=== PATIENT | female | born 1950 | race African-American/Black ===

== ENCOUNTER 2021-08-29 19:20 | Inpatient (IN) | payer MEDICARE, OTHER ==
[2021-08-29 20:13] VITALS: BMI 25.8
[2021-08-29] MEDS ORDERED: Bisacodyl 5 MG TAB PO PRN (22:26)
[2021-08-29] MEDS ORDERED: Ondansetron ODT 4 MG TAB PO PRN (22:30)
[2021-08-29] MEDS ORDERED: Acetaminophen 650 MG Suppository PR PRN (22:30)
[2021-08-29] MEDS ORDERED: Mirtazapine 15 MG TAB PER TUBE SCH (23:00)
[2021-08-29] MEDS ORDERED: Carvedilol 3.125 MG TAB PER TUBE SCH (23:00)
[2021-08-29] MEDS ORDERED: Atorvastatin Calcium 40 MG TAB PER TUBE SCH (23:00)
[2021-08-29] MEDS ORDERED: levETIRAcetam 500 mg/5 ml Oral Solution PO SCH (23:00)
[2021-08-29] MEDS ORDERED: Famotidine 20 MG TAB PO SCH (23:00)
[2021-08-30] MEDS: Zinc Sulfate 220 MG CAP PER TUBE SCH (09:30)
[2021-08-30] MEDS: Enoxaparin Sodium 40 MG/0.4 ML SYRINGE SC SCH (09:32)
[2021-08-30] MEDS: Carvedilol 3.125 MG TAB PER TUBE SCH ×2 (09:43→18:08)
[2021-08-30] MEDS: Aspirin Chewable 81 MG TAB PER TUBE SCH (09:43)
[2021-08-30] MEDS: levETIRAcetam 500 mg/5 ml Oral Solution PO SCH ×2 (09:43→23:00)
[2021-08-30] MEDS: Famotidine 20 MG TAB PO SCH ×2 (09:49→23:01)
[2021-08-30] MEDS: Polyethylene Glycol 3350 17 GM Packet PER TUBE SCH (09:51)
[2021-08-30] MEDS: Nystatin 500,000 UNITS/5 ML UDCUP SSW SCH ×2 (18:08→22:59)
[2021-08-30] MEDS: Mirtazapine 15 MG TAB PER TUBE SCH (23:01)
[2021-08-30] MEDS: Atorvastatin Calcium 40 MG TAB PER TUBE SCH (23:01)
[2021-08-31] MEDS: Polyethylene Glycol 3350 17 GM Packet PER TUBE SCH (10:16)
[2021-08-31] MEDS: Famotidine 20 MG TAB PO SCH ×2 (10:17→23:20)
[2021-08-31] MEDS: levETIRAcetam 500 mg/5 ml Oral Solution PO SCH ×2 (10:17→23:19)
[2021-08-31] MEDS: Nystatin 500,000 UNITS/5 ML UDCUP SSW SCH ×4 (10:17→23:19)
[2021-08-31] MEDS: Zinc Sulfate 220 MG CAP PER TUBE SCH (10:18)
[2021-08-31] MEDS: Enoxaparin Sodium 40 MG/0.4 ML SYRINGE SC SCH (10:18)
[2021-08-31] MEDS: Aspirin Chewable 81 MG TAB PER TUBE SCH (10:18)
[2021-08-31] MEDS: Carvedilol 3.125 MG TAB PER TUBE SCH ×2 (10:18→17:57)
[2021-08-31] MEDS: Mirtazapine 15 MG TAB PER TUBE SCH (23:20)
[2021-08-31] MEDS: Atorvastatin Calcium 40 MG TAB PER TUBE SCH (23:20)
[2021-09-01] MEDS: Enoxaparin Sodium 40 MG/0.4 ML SYRINGE SC SCH (09:15)
[2021-09-01] MEDS: Polyethylene Glycol 3350 17 GM Packet PER TUBE SCH (09:15)
[2021-09-01] MEDS: levETIRAcetam 500 mg/5 ml Oral Solution PO SCH ×2 (09:15→21:41)
[2021-09-01] MEDS: Nystatin 500,000 UNITS/5 ML UDCUP SSW SCH ×4 (09:16→21:45)
[2021-09-01] MEDS: Carvedilol 3.125 MG TAB PER TUBE SCH ×2 (09:17→17:06)
[2021-09-01] MEDS: Famotidine 20 MG TAB PO SCH ×2 (09:17→21:42)
[2021-09-01] MEDS: Aspirin Chewable 81 MG TAB PER TUBE SCH (09:18)
[2021-09-01] MEDS: Zinc Sulfate 220 MG CAP PER TUBE SCH (09:18)
[2021-09-01] MEDS: Mirtazapine 15 MG TAB PER TUBE SCH (21:41)
[2021-09-01] MEDS: Atorvastatin Calcium 40 MG TAB PER TUBE SCH (21:42)
[2021-09-02] MEDS: Enoxaparin Sodium 40 MG/0.4 ML SYRINGE SC SCH (10:33)
[2021-09-02] MEDS: Carvedilol 3.125 MG TAB PER TUBE SCH ×2 (10:34→17:30)
[2021-09-02] MEDS: Zinc Sulfate 220 MG CAP PER TUBE SCH (10:34)
[2021-09-02] MEDS: Famotidine 20 MG TAB PO SCH ×2 (10:34→20:37)
[2021-09-02] MEDS: levETIRAcetam 500 mg/5 ml Oral Solution PO SCH ×2 (10:35→20:37)
[2021-09-02] MEDS: Nystatin 500,000 UNITS/5 ML UDCUP SSW SCH ×4 (10:35→20:45)
[2021-09-02] MEDS: Aspirin Chewable 81 MG TAB PER TUBE SCH (10:35)
[2021-09-02] MEDS: Polyethylene Glycol 3350 17 GM Packet PER TUBE SCH (10:40)
[2021-09-02] MEDS: Atorvastatin Calcium 40 MG TAB PER TUBE SCH (20:37)
[2021-09-02] MEDS: Mirtazapine 15 MG TAB PER TUBE SCH (20:37)
[2021-09-03] MEDS: Zinc Sulfate 220 MG CAP PER TUBE SCH (10:01)
[2021-09-03] MEDS: levETIRAcetam 500 mg/5 ml Oral Solution PO SCH ×2 (10:01→22:56)
[2021-09-03] MEDS: Polyethylene Glycol 3350 17 GM Packet PER TUBE SCH (10:02)
[2021-09-03] MEDS: Famotidine 20 MG TAB PO SCH ×2 (10:02→22:57)
[2021-09-03] MEDS: Nystatin 500,000 UNITS/5 ML UDCUP SSW SCH ×4 (10:03→22:57)
[2021-09-03] MEDS: Carvedilol 3.125 MG TAB PER TUBE SCH ×2 (10:03→17:53)
[2021-09-03] MEDS: Aspirin Chewable 81 MG TAB PER TUBE SCH (10:04)
[2021-09-03] MEDS: Enoxaparin Sodium 40 MG/0.4 ML SYRINGE SC SCH (10:27)
[2021-09-03] MEDS: Atorvastatin Calcium 40 MG TAB PER TUBE SCH (22:57)
[2021-09-03] MEDS: Mirtazapine 15 MG TAB PER TUBE SCH (22:57)
[2021-09-04] MEDS: Enoxaparin Sodium 40 MG/0.4 ML SYRINGE SC SCH (10:09)
[2021-09-04] MEDS: Famotidine 20 MG TAB PO SCH ×2 (10:10→22:32)
[2021-09-04] MEDS: Nystatin 500,000 UNITS/5 ML UDCUP SSW SCH ×4 (10:10→22:32)
[2021-09-04] MEDS: Zinc Sulfate 220 MG CAP PER TUBE SCH (10:11)
[2021-09-04] MEDS: levETIRAcetam 500 mg/5 ml Oral Solution PO SCH ×2 (10:11→22:32)
[2021-09-04] MEDS: Aspirin Chewable 81 MG TAB PER TUBE SCH (10:11)
[2021-09-04] MEDS: Carvedilol 3.125 MG TAB PER TUBE SCH ×2 (10:11→17:49)
[2021-09-04] MEDS: Polyethylene Glycol 3350 17 GM Packet PER TUBE SCH (10:12)
[2021-09-04] MEDS: Atorvastatin Calcium 40 MG TAB PER TUBE SCH (22:32)
[2021-09-04] MEDS: Mirtazapine 15 MG TAB PER TUBE SCH (22:32)
[2021-09-05] MEDS: Enoxaparin Sodium 40 MG/0.4 ML SYRINGE SC SCH (10:33)
[2021-09-05] MEDS: Nystatin 500,000 UNITS/5 ML UDCUP SSW SCH ×4 (10:33→20:45)
[2021-09-05] MEDS: levETIRAcetam 500 mg/5 ml Oral Solution PO SCH ×2 (10:33→20:45)
[2021-09-05] MEDS: Zinc Sulfate 220 MG CAP PER TUBE SCH (10:34)
[2021-09-05] MEDS: Carvedilol 3.125 MG TAB PER TUBE SCH ×2 (10:34→18:16)
[2021-09-05] MEDS: Aspirin Chewable 81 MG TAB PER TUBE SCH (10:34)
[2021-09-05] MEDS: Famotidine 20 MG TAB PO SCH ×2 (10:37→20:45)
[2021-09-05] MEDS: Polyethylene Glycol 3350 17 GM Packet PER TUBE SCH (10:38)
[2021-09-05] MEDS: Atorvastatin Calcium 40 MG TAB PER TUBE SCH (20:44)
[2021-09-05] MEDS: Mirtazapine 15 MG TAB PER TUBE SCH (20:45)
[2021-09-06] MEDS: Famotidine 20 MG TAB PO SCH ×2 (09:12→22:00)
[2021-09-06] MEDS: Nystatin 500,000 UNITS/5 ML UDCUP SSW SCH ×4 (09:12→22:00)
[2021-09-06] MEDS: Aspirin Chewable 81 MG TAB PER TUBE SCH (09:12)
[2021-09-06] MEDS: Enoxaparin Sodium 40 MG/0.4 ML SYRINGE SC SCH (09:12)
[2021-09-06] MEDS: Polyethylene Glycol 3350 17 GM Packet PER TUBE SCH (09:13)
[2021-09-06] MEDS: Carvedilol 3.125 MG TAB PER TUBE SCH ×2 (09:13→17:41)
[2021-09-06] MEDS: levETIRAcetam 500 mg/5 ml Oral Solution PO SCH ×2 (09:13→22:00)
[2021-09-06] MEDS: Zinc Sulfate 220 MG CAP PER TUBE SCH (09:13)
[2021-09-06] MEDS: Atorvastatin Calcium 40 MG TAB PER TUBE SCH (22:00)
[2021-09-06] MEDS: Mirtazapine 15 MG TAB PER TUBE SCH (22:00)
[2021-09-07] MEDS: levETIRAcetam 500 mg/5 ml Oral Solution PO SCH ×2 (08:59→21:35)
[2021-09-07] MEDS: Aspirin Chewable 81 MG TAB PER TUBE SCH (08:59)
[2021-09-07] MEDS: Nystatin 500,000 UNITS/5 ML UDCUP SSW SCH ×4 (08:59→21:35)
[2021-09-07] MEDS: Zinc Sulfate 220 MG CAP PER TUBE SCH (08:59)
[2021-09-07] MEDS: Famotidine 20 MG TAB PO SCH ×2 (08:59→21:35)
[2021-09-07] MEDS: Enoxaparin Sodium 40 MG/0.4 ML SYRINGE SC SCH (08:59)
[2021-09-07] MEDS: Carvedilol 3.125 MG TAB PER TUBE SCH ×2 (08:59→17:11)
[2021-09-07] MEDS: Polyethylene Glycol 3350 17 GM Packet PER TUBE SCH (09:00)
[2021-09-07] MEDS: Mirtazapine 15 MG TAB PER TUBE SCH (21:35)
[2021-09-07] MEDS: Atorvastatin Calcium 40 MG TAB PER TUBE SCH (21:35)
[2021-09-08] MEDS: Enoxaparin Sodium 40 MG/0.4 ML SYRINGE SC SCH (09:43)
[2021-09-08] MEDS: levETIRAcetam 500 mg/5 ml Oral Solution PO SCH ×2 (09:43→20:28)
[2021-09-08] MEDS: Nystatin 500,000 UNITS/5 ML UDCUP SSW SCH ×4 (09:44→20:27)
[2021-09-08] MEDS: Famotidine 20 MG TAB PO SCH ×2 (09:44→20:29)
[2021-09-08] MEDS: Zinc Sulfate 220 MG CAP PER TUBE SCH (09:45)
[2021-09-08] MEDS: Aspirin Chewable 81 MG TAB PER TUBE SCH (09:45)
[2021-09-08] MEDS: Carvedilol 3.125 MG TAB PER TUBE SCH ×2 (09:45→17:50)
[2021-09-08] MEDS: Polyethylene Glycol 3350 17 GM Packet PER TUBE SCH (09:45)
[2021-09-08 17:02] VITALS: BP 123/74; TEMP 98.4
[2021-09-08] MEDS: Atorvastatin Calcium 40 MG TAB PER TUBE SCH (20:28)
[2021-09-08] MEDS: Mirtazapine 15 MG TAB PER TUBE SCH (20:29)
== END 2021-09-08 21:11 | DRG 177 ==
LOC: BURMED 19:20
PROVIDERS: ADMIT Family Medicine; ATTEND Family Medicine
PROC: 8E0ZXY6 Isolation (ICD-10-PCS; principal; 2021-08-29)
DX: U07.1 COVID-19 (principal); J12.82 Pneumonia due to coronavirus disease 2019; G93.41 Metabolic encephalopathy; R62.7 Adult failure to thrive; I50.9 Heart failure, unspecified; I11.0 Hypertensive heart disease with heart failure; E78.5 Hyperlipidemia, unspecified; Z68.25 Body mass index [BMI] 25.0-25.9, adult; Z90.49 Acquired absence of other specified parts of digestive tract
CPT/HCPCS: J1650